=== PATIENT | male | born 1985 | race Caucasian/White ===

== ENCOUNTER 2020-08-11 20:38 | Emergency (ER) | payer OTHER ==
[~2020-08-11] VITALS: Ht 177.8 cm; Wt 74.2 kg
[2020-08-11 20:42] VITALS: BP 128/72
[2020-08-11] MEDS ORDERED: DIPH,PERTUSS(ACELL),TET VAC/PF 0.5 ML IM-VACC ONE ×2 (21:00→21:27)
[2020-08-11] MEDS ORDERED: LIDOCAINE 2%, 20ML SQ ONE (21:30)
--- NOTE | 2020-08-11 21:34 | NUR ---
PT STATES HE HAD A TDAP 2 YEARS AGO. PER MD, NO NEED FOR ANOTHER TDAP AT THIS TIME.
[2020-08-11] MEDS ORDERED: LIDOCAINE-MPF 2% ,5ML ONE (21:44)
[2020-08-11] MEDS ORDERED: NEOSPORIN OINT. PKT 1 PACKET ONE (22:47)
--- NOTE | 2020-08-11 22:52 | NUR ---
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
== END 2020-08-11 23:00 | disposition home or self-care (01) ==
LOC: ED 21:08
DX: S61.211A Laceration without foreign body of left index finger without damage to nail, initial encounter (principal); F17.200 Nicotine dependence, unspecified, uncomplicated; W54.0XXA Bitten by dog, initial encounter; Y93.89 Activity, other specified; Y92.89 Other specified places as the place of occurrence of the external cause; Y99.8 Other external cause status
CPT/HCPCS: 12001; 99283